=== PATIENT | female | born 1985 | race Hispanic/Latino ===

== ENCOUNTER 2016-09-29 17:38 | Emergency (ER) | payer OTHER, BC ==
[2016-09-29 17:43] VITALS: TEMP 98.2; O2SAT 100; BMI 24.0
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
--- NOTE | 2016-09-29 20:19 | US ---
PROCEDURE: Right lower extremity venous US HISTORY: Leg pain and swelling. Evaluate for DVT. PHYSICIAN(S): Harrison Moctezuma M.D. TECHNIQUE: Duplex sonography and color-flow Doppler with graded compression were used to evaluate the deep venous system of the right lower extremity. FINDINGS: The visualized deep venous system of the right lower extremity is sonographically normal and compressible. Normal waveforms and augmentation are seen. There is no sonographic evidence for deep venous thrombosis in the visualized segments of the right lower extremity. IMPRESSION: 1. No sonographic evidence for deep venous thrombosis in the visualized segments of the right lower extremity.
[2016-09-29 20:53] VITALS: BP 125/82; PULSE 75; RESP 16
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
--- NOTE | 2016-09-30 09:28 | RAD ---
PROCEDURE: Radiographs of the right tibia and fibula. HISTORY: right posterior leg pain COMPARISON: None available. TECHNIQUE: Frontal and lateral views obtained. FINDINGS: BONES: No acute displaced fracture. JOINT SPACES: No dislocation. OTHER FINDINGS: Soft tissues appear unremarkable. No evidence of radiopaque foreign body. IMPRESSION: No acute displaced fracture, dislocation, or significant joint effusion identified. If symptoms persist, or if there is continued clinical concern, x-ray follow-up in 7-10 days should be considered.
--- NOTE | 2016-09-30 09:30 | RAD ---
PROCEDURE: Right Foot Radiographs. HISTORY: right foot pain COMPARISON: None available. FINDINGS: BONES: No acute displaced fracture. JOINTS: No dislocation. SOFT TISSUES: Unremarkable. No evidence of radiopaque foreign body. OTHER FINDINGS: None. IMPRESSION: No acute displaced fracture, dislocation, or significant joint effusion identified. If symptoms persist, or if there is continued clinical concern, x-ray follow-up in 7-10 days should be considered.
== END 2016-09-29 20:51 | disposition home or self-care (01) ==
LOC: ED 17:38
DX: M79.642 Pain in left hand (principal); M79.604 Pain in right leg

== ENCOUNTER 2017-11-29 12:45 | Emergency (ER) | payer BC, OTHER ==
[2017-11-29 12:46] VITALS: BMI 24.0
[2017-11-29] MEDS ORDERED: Sodium Chloride 0.9% 1,000 ML IV STA (13:23)
--- NOTE | 2017-11-29 13:34 | ED PDOC ---
Arrival/HPI - General Historian: Patient - History of Present Illness Narrative History of Present Illness (Text): 11/29/17 13:27 32 yo F with no significant PMHx presenting to the ED with b/l headache since yesterday afternoon. Per patient, symptoms began around 4PM ye when she was looking at her computer screen. She c/o acute onset pain behind her eyes b/l, describes it as a constant pressure-type pain. Patient endorses photophobia and phonophobia as well as nausea. She also notes some lacrimation of her L eye. Denies any vomiting, changes in vision, or dizziness. Denies any hx of migraines. No other acute complaints. No chest pain, palpitations, sob, cough, abdominal, diarrhea/constipation, dysuria, or changes in stool. PMHx: none PSHx: none Allergies: NKDA Home Medications: None Family Hx: "cardiac issues" Social Hx: denies alcohol, tobacco, illicit drug use. Denies OCP use. Works as a nurse. 11/29/17 13:40 Time/Duration: 24 hours Symptom Onset: Sudden Symptom Course: Unchanged Quality: Pressure, Tightness Severity Level: Moderate Activities at Onset: Light <Donavan Zee - Last Filed: 11/29/17 14:36> <Levy Zepeda - Last Filed: 11/29/17 15:37> - General Chief Complaint: Headache Time Seen by Provider: 11/29/17 13:05 Past Medical History - Provider Review Nursing Documentation Reviewed: Yes - Past History Past History: No Previous - Cardiac Hx Cardiac Disorders: No - Pulmonary Hx Respiratory Disorders: No - Neurological Hx Neurological Disorder: No - HEENT Hx HEENT Disorder: No - Renal Hx Renal Disorder: No - Endocrine/Metabolic Hx Endocrine Disorders: No - Hematological/Oncological Hx Blood Disorders: No - Integumentary Hx Dermatological Disorder: No - Musculoskeletal/Rheumatological Hx Musculoskeletal Disorders: No - Gastrointestinal Hx Gastrointestinal Disorders: No - Genitourinary/Gynecological Hx Genitourinary Disorders: No - Psychiatric Hx Psychophysiologic Disorder: No Hx Substance Use: No - Anesthesia Hx Anesthesia: No <Donavan Zee - Last Filed: 11/29/17 14:36> Family/Social History - Physician Review Nursing Documentation Reviewed: Yes Family/Social History: CAD/NE Smoking Status: Never Smoked Hx Alcohol Use: Yes Frequency of alcohol use: Socially Hx Substance Use: No <Donavan Zee - Last Filed: 11/29/17 14:36> Allergies/Home Meds <Donavan Zee - Last Filed: 11/29/17 14:36> <Levy Zepeda - Last Filed: 11/29/17 15:37> Allergies/Adverse Reactions: Allergies No Known Allergies Allergy (Verified 09/29/16 18:54) Home Medications: Home Meds Medication Instructions Recorded Confirmed No Known Home Med 11/29/17 11/29/17 Review of Systems - Review of Systems Constitutional: Normal Eyes: Photophobia, Eye Pain. absent: Vision Changes ENT: Normal Respiratory: Normal Cardiovascular: Normal Gastrointestinal: Normal Genitourinary Female: Normal Musculoskeletal: Normal Skin: Normal Neurological: Normal Endocrine: Normal Hemo/Lymphatic: Normal Psychiatric: Normal <Donavan Zee - Last Filed: 11/29/17 14:36> Physical Exam Vital Signs Temp Pulse Resp BP Pulse Ox 11/29/17 12:46 99.7 F H 104 H 20 125/67 97 Temperature: Afebrile Blood Pressure: Normal Pulse: Tachycardic Respiratory Rate: Normal Appearance: Positive for: Well-Appearing, Non-Toxic Pain Distress: Mild Mental Status: Positive for: Alert and Oriented X 3 - Systems Exam Head: Present: Atraumatic, Normocephalic Pupils: Present: PERRL Extroacular Muscles: Present: EOMI Conjunctiva: Present: Normal Mouth: Present: Moist Mucous Membranes Neck: Present: Normal Range of Motion Respiratory/Chest: Present: Clear to Auscultation, Good Air Exchange. No: Respiratory Distress, Accessory Muscle Use Cardiovascular: Present: Normal S1, S2, Tachycardic Abdomen: Present: Normal Bowel Sounds. No: Tenderness, Distention, Rebound, Guarding Back: Present: Normal Inspection Upper Extremity: Present: Normal Inspection, Normal ROM, NORMAL PULSES, Capillary Refill < 2s. No: Cyanosis, Edema Lower Extremity: Present: Normal Inspection, NORMAL PULSES, Normal ROM, Capillary Refill < 2 s. No: Edema, CALF TENDERNESS Neurological: Present: CN II-XII Intact, Speech Normal Skin: Present: Warm, Dry, Normal Color Psychiatric: Present: Alert, Oriented x 3, Normal Insight, Normal Concentration <Earnest Zeeio - Last Filed: 11/29/17 14:36> Vital Signs Temp Pulse Resp BP Pulse Ox 11/29/17 12:46 99.7 F H 104 H 20 125/67 97 <Leyv Zepeda - Last Filed: 11/29/17 15:37> Medical Decision Making ED Course and Treatment: 11/29/17 13:37 Impression: 32 yo F with no past medical history presenting to the ED with acute onset headache since yesterday afternoon. Plan: -- CMP, CBC -- ESR -- Trop x1 -- IVF -- Toradol 30 mg IVP x1 -- Reglan 10 mg IVP x1 -- UA -- urine -- delay Neurologic care to Dr. Amador -- Monitor and disposition - Medication Orders Current Medication Orders: Sodium Chloride (Sodium Chloride 0.9%) 1,000 mls @ 999 mls/hr IV .Q1H1M STA Stop: 11/29/17 14:23 Ketorolac Tromethamine (Toradol) 30 mg IVP STAT STA Stop: 11/29/17 13:25 <SaadiaDonavan - Last Filed: 11/29/17 14:36> ED Course and Treatment: 11/29/17 14:21 Reevaluated patient who reports mild relief with medications. Spoke to patient regarding urgency for further workup and monitoring in which she agrees and is amenable to. Discussed case with Dr. Nicole(hospitalist) who accepts and will see patient when he finishes house calls. In agreement with resident note which contains more details about the patient. Patient seen and evaluated with resident. Came up with plan and treatment together. 11/29/17 15:[address] Amador(neurologist) who after evaluating patient, states patient does not have to stay in the hospital and may be discharged. She requests patient to be given scripts for Toradol, Imitrex and magnesium with outpatient follow up. Called Dr. Nicole and updated him on patient's clinical plan. Patient is stable for discharge. - Lab Interpretations Lab Results: Lab Results 11/29/17 13:35: Urine Color Yellow, Urine Appearance Clear, Urine pH 6.0, Ur Specific [place] 1.025, Urine Protein Trace H, Urine Glucose (UA) Negative, Urine Ketones Trace H, Urine Blood Large H, Urine Nitrate Negative, Urine Bilirubin Negative, Urine Urobilinogen 0.2, Ur Leukocyte Esterase Negative, Urine RBC 0 - 2, Urine WBC 0 - 2, Ur Epithelial Cells 0 - 2, Urine Bacteria Small, Urine HCG, Qual Negative - Medication Orders Current Medication Orders: Sodium Chloride (Sodium Chloride 0.9%) 1,000 mls @ 999 mls/hr IV .Q1H1M STA Stop: 11/29/17 14:23 Last Admin: 11/29/17 13:55 Dose: 999 mls/hr eMAR Start Stop Document 11/29/17 13:55 LA (Rec: 11/29/17 13:56 LA [id number]) Intravenous Solution Start Date 11/29/17 Start Time 13:56 End Date 11/29/17 End time 14:56 Total Infusion Time 60 Discontinued Medications Ketorolac Tromethamine (Toradol) 30 mg IVP STAT STA Stop: 11/29/17 13:25 Last Admin: 11/29/17 13:56 Dose: 30 mg MAR Pain Assessment Document 11/29/17 13:56 LA (Rec: 11/29/17 13:57 LA [id number]) Pain Reassessment Is this a pain reassessment? No Sleep Is patient sleeping during reassessment? No Presence of Pain Presence of Pain Yes Pain Scale Used Protocol: PSCALES Pain Scale Used Numeric Location Pain Location Body Sales Program Manager Description Description Constant Intensity of Pain at present 8 Pain Behavior Guarding Facial Grimacing IVP Administration Document 11/29/17 13:56 LA (Rec: 11/29/17 13:57 LA [id number]) Charges for Administration # of IVP Administrations 1 Metoclopramide HCl (Reglan) 10 mg IVP STAT STA Stop: 11/29/17 13:33 Last Admin: 11/29/17 13:57 Dose: 10 mg IVP Administration Document 11/29/17 13:57 LA (Rec: 11/29/17 13:57 LA [id number]) Charges for Administration # of IVP Administrations 1 <Levy Zepeda - Last Filed: 11/29/17 15:37> - PA / LIFE INSURANCE AGENT / Resident Statement JAIME has reviewed & agrees with the documentation as recorded. JAIME has examined the patient and agrees with the treatment plan. <Levy Zepeda - Last Filed: 11/29/17 15:37> Disposition/Present on Arrival - Present on Arrival History of DVT/PE: No History of Uncontrolled Diabetes: No Urinary Catheter: No History of Decub. Ulcer: No History Surgical Site Infection Following: None <Donavan Zee - Last Filed: 11/29/17 14:36> - Present on Arrival Any Indicators Present on Arrival: No - Disposition Have Diagnosis and Disposition been Completed?: Yes Disposition Time: 15:31 Patient Plan: Discharge <Levy Zepeda - Last Filed: 11/29/17 15:37> - Disposition Diagnosis: Headache Disposition: HOME/ ROUTINE Patient Problems: Current Active Problems Problem Status Onset Headache Acute Condition: IMPROVED
[2017-11-29 13:51] LABS: URINE BILIRUBIN NEGATIVE (NEGATIVE); URINE BLOOD LARGE (NEGATIVE); URINE GLUCOSE (UA) NEGATIVE (NEGATIVE); URINE LEUKOCYTE ESTERASE NEGATIVE Leu/uL (NEGATIVE); URINE PROTEIN TRACE mg/dL (<30 mg/dL); URINE UROBILINOGEN 0.2 E.U./dL (<1 E.U./dL)
[2017-11-29 13:53] LABS: URINE APPEARANCE CLEAR (CLEAR); URINE COLOR YELLOW (YELLOW)
[2017-11-29 14:03] LABS: HCG,QUALITATIVE URINE NEGATIVE (NEGATIVE)
[2017-11-29 14:13] LABS: URINE BACTERIA SMALL (NEG); URINE EPITHELIAL CELLS 0 - 2 /hpf (0-5); URINE RBC 0 - 2 /hpf (0-2); URINE WBC 0 - 2 /hpf (0-6)
[2017-11-29 14:26] LABS: BASO # 0.01 K/mm3 (0.0-2.0); BASO % 0.2 % (0.0-3.0); EOS # 0.1 (0.0-0.7); EOS % 1.1 % (1.5-5.0); GRAN # 3.78 (1.4-6.5); HEMOGLOBIN 13.2 g/dL (12.0-16.0); LYMPH # 1.5 (1.2-3.4); LYMPH % 27.4 % (22.0-35.0); MEAN CELL VOLUME 84.3 fl (80.0-105.0); MEAN CORPUSCULAR HEMOGLOBIN 27.6 pg (25.0-35.0); MEAN CORPUSCULAR HGB CONC 32.7 g/dl (31.0-37.0); MEAN PLATELET VOLUME 9.4 fl (7.0-11.0); MONO # 0.2 (0.1-0.6); MONO % 4.3 % (1.0-6.0); RBC 4.79 10^6/uL (3.5-6.1); RED CELL DISTRIBUTION WIDTH 13.2 % (11.5-14.5); WHITE BLOOD COUNT 5.6 10^3/ul (4.5-11.0)
[2017-11-29 14:32] VITALS: RESP 18; TEMP 98.4; O2SAT 100
[2017-11-29 14:47] LABS: ALB/GLOB RATIO 1.4 (1.1-1.8); ALBUMIN 4.3 g/dL (3.0-4.8); ALT/SGPT 45 U/L (7-56); AST/SGOT 30 U/L (14-36); BLOOD UREA NITROGEN 13 mg/dL (7-21); CALCIUM 9.6 mg/dL (8.4-10.5); GFR NON-AFRICAN AMERICAN > 60
[2017-11-29 14:58] LABS: TROPONIN I < 0.01 ng/mL
[2017-11-29 16:30] VITALS: BP 112/70; PULSE 87
--- NOTE | 2017-11-30 09:17 | CARD ---
APPROVED REPORT Date of service: 11/29/2017 EKG Measurement Heart [id number] <Conclusion> Normal sinus rhythm Normal ECG
== END 2017-11-29 16:30 | disposition home or self-care (01) ==
LOC: ED 12:45 → UNDOADMOB 14:31 → ERH 14:31 → ED 16:30
DX: R51 Headache (principal)
CPT/HCPCS: 80053; 81001; 83735; 84484; 84702; 84703; 85025; 85651; 93005; 96361; 96374; 96375; 99285; J1885; J2765; J7030

== ENCOUNTER 2018-03-27 11:27 | Outpatient (CLI) | payer OTHER | END 2018-03-27 11:28 | disposition home or self-care (01) | LOC: LAB 11:27 ==

== ENCOUNTER 2018-03-29 11:04 | Outpatient (CLI) | payer OTHER | END 2018-03-29 11:05 | disposition home or self-care (01) | LOC: LAB 11:04 ==

== ENCOUNTER 2018-04-24 14:01 | Outpatient (CLI) | payer OTHER | END 2018-04-24 14:02 | disposition home or self-care (01) | LOC: LAB 14:01 ==

== ENCOUNTER 2018-04-26 13:08 | Outpatient (CLI) | payer OTHER | END 2018-04-26 13:09 | disposition home or self-care (01) | LOC: LAB 13:08 ==

== ENCOUNTER 2018-05-09 10:55 | Outpatient (CLI) | payer OTHER | END 2018-05-09 10:56 | disposition home or self-care (01) | LOC: LAB 10:55 ==